=== PATIENT | female | born 1980 | race Two or more races ===

== ENCOUNTER 2018-01-28 20:42 | Emergency (ER) | payer MEDICAID ==
[~2018-01-28] VITALS: Ht 160 cm; Wt 56.7 kg
[2018-01-28] MEDS ORDERED: Albuterol ud Inhalation HHN ONE (21:15)
[2018-01-28] MEDS ORDERED: Ipratropium 0.02% Inh Soln 2.5ml UD HHN ONE (21:15)
[2018-01-28] MEDS ORDERED: IBUPROFEN600 MG ORAL (21:56)
--- NOTE | 2018-01-28 22:20 | Emergency Room Report ---
History of Present Illness General Chief Complaint: Lower Extremity Injury Source: Patient Present Illness HPI 37-year-old female presents ED for evaluation. Patient states she banged her left middle toe against exercise equipment 3 days ago. Notes persistent pain and bruising since. Pain is throbbing, 7 out of 10, nonradiating. Denies any other injuries. Patient is also complaining of a cough and sore throat times one week. Short of breath when talking. States this is happened her in the past and her primary care doctor gave her a "breathing mask". Denies history of asthma but has used inhaler in the past. Denies any fevers or chills. Denies sick contacts or recent travel. No other aggravating relieving factors. Denies any other associated symptoms Allergies: Coded Allergies: No Known Allergies (Unverified , 01/28/18) Patient History Past Medical History: none Past Surgical History: none Pertinent Family History: none Social History: Denies: smoking, alcohol use, drug use Now: No Immunizations: UTD Reviewed Nursing Documentation: PMH: Agreed; PSxH: Agreed Nursing Documentation-PMH Past Medical History: No Stated History Review of Systems All Other Systems: negative except mentioned in HPI Physical Exam Vital Signs Date Time Temp Pulse Resp B/P (MAP) Pulse Ox O2 Delivery O2 Flow Rate FiO2 01/28/18 20:50 98.4 68 16 120/60 97 Room Air 98.4 01/28/18 21:17 21 Sp02 EP Interpretation: reviewed, normal General Appearance: no apparent distress, alert, GCS 15, non-toxic Head: normocephalic, atraumatic Eyes: bilateral eye normal inspection, bilateral eye PERRL ENT: hearing grossly normal, normal pharynx, no angioedema, normal voice Neck: full range of motion, supple/symm/no masses Respiratory: chest non-tender, lungs clear, normal breath sounds, speaking full sentences Cardiovascular #1: regular rate, rhythm, no edema Cardiovascular #2: 2+ carotid (R), 2+ carotid (L), 2+ radial (R), 2+ radial (L) , 2+ dorsalis pedis (R), 2+ dorsalis pedis (L) Gastrointestinal: normal bowel sounds, non tender, soft, non-distended, no guarding, no rebound Rectal: deferred Genitourinary: normal inspection, no CVA tenderness Musculoskeletal: back normal, gait/station normal, normal range of motion, other - bruising L middle toe Neurologic: alert, oriented x3, responsive, motor strength/tone normal, sensory intact, speech normal Psychiatric: judgement/insight normal, memory normal, mood/affect normal, no suicidal/homicidal ideation Reflexes: 3+ bicep (R), 3+ bicep (L), 3+ tricep (R), 3+ tricep (L), 3+ knee (R) , 3+ knee (L) Skin: normal color, no rash, warm/dry, well hydrated Lymphatic: no adenopathy Medical Decision Making Diagnostic Impression: Primary Impression: Upper respiratory infection Qualified Codes: J06.9 - Acute upper respiratory infection, unspecified Additional Impression: Toe contusion Qualified Codes: S90.122A - Contusion of left lesser toe(s) without damage to nail, initial encounter ER Course Hospital Course 37 yo F presents to ED c/o cough/SOB x 1 week. c/o L big toe pain Differential diagnoses include: Fracture, dislocation, sprain, contusion Clinical course Patient placed on stretcher. After initial history and physical, I ordered nebs , cxr, xray of L foot Chest x-ray unremarkable Left foot x-ray shows no evidence of fracture or dislocation no soft tissue swelling. On reassessment patient states her breathing is improved. Given stable vitals with no risk factors I do not believe further workup is required at this time. Recommend close follow-up with PMD Diagnosis - URI, toe contusion Stable and discharged to home with prescription for Motrin. continue inhaler prescribed by PMD. apply ice, keep elevated. weight bear as tolerated. Followup with PMD. Return to ED if symptoms recur or worsen Chest X-Ray Diagnostic Results Chest X-Ray Diagnostic Results : Chest X-Ray Ordered: Yes # of Views/Limited/Complete: 1 View Indication: Shortness of Breath EP Interpretation: Yes Interpretation: no consolidation, no effusion, no pneumothorax, no acute cardiopulmonary disease Impression: No acute disease Electronically Signed by: Electronically signed by Logan Herbert MD Other X-Ray Diagnostic Results Other X-Ray Diagnostic Results : X-Ray ordered: L foot # of Views/Limited Vs Complete: 3 View Indication: Pain EP Interpretation: Yes Interpretation: no dislocation, no soft tissue swelling, no fractures Impression: No acute disease Electronically Signed by: Electronically signed by Logan Herbert MD Last Vital Signs Date Time Temp Pulse Resp B/P (MAP) Pulse Ox O2 Delivery O2 Flow Rate FiO2 01/28/18 21:33 72 18 99 Room Air 21 01/28/18 20:50 98.4 120/60 98.4 Status: improved Disposition: HOME, SELF-CARE Condition: Stable Scripts Ibuprofen* (MOTRIN*) 600 Mg Tablet 600 MG ORAL Q8H PRN for For Pain, #30 TAB 0 Refills Prov: Logan Herbert MD 01/28/18 Patient Instructions: Foot Contusion Logan Herbert MD Jan 28, 2018 22:20
[2018-01-28 22:49] VITALS: BP 97/61
[2018-01-28 22:50] VITALS: BP 97/61
--- NOTE | 2018-01-29 10:44 | Diagnostic Imaging Report ---
Indications: Left foot pain Technique: 3 views of the left foot Comparison: None Findings: No acute fractures. No dislocations. Joint spaces are preserved. No radiopaque foreign body. Normal mineralization. Impression: No acute process This agrees with the preliminary interpretation provided by the emergency room physician .
--- NOTE | 2018-01-29 10:45 | Diagnostic Imaging Report ---
Indication: Reason For Exam: SOB Technique: One view of the chest Comparison: none Findings: Lungs and pleural spaces are clear. Heart size is normal Impression: No acute process This agrees with the preliminary interpretation provided by the emergency room physician
== END 2018-01-28 22:50 | disposition home or self-care (01) ==
LOC: EMR 21:05
DX: J06.9 Acute upper respiratory infection, unspecified (principal); S90.122A Contusion of left lesser toe(s) without damage to nail, initial encounter; W22.8XXA Striking against or struck by other objects, initial encounter; Y92.9 Unspecified place or not applicable
CPT/HCPCS: 71045; 73630; 94640; 99284; J7512

== ENCOUNTER 2019-10-28 20:54 | Emergency (ER) | payer SELFPAY ==
[~2019-10-28] VITALS: Ht 154.9 cm; Wt 56.7 kg
[~2019-10-28 20:54] MED LIST: IBUPROFEN600 MG ORAL
--- NOTE | 2019-10-28 21:13 | NUR ---
ED Nurse Note: pt ambulated to ed with c/o couhgh and congestion x4 weeks pt states she used nebulizer and it didnt help. NAD noted.
[2019-10-28 21:14] VITALS: BP 105/66
--- NOTE | 2019-10-28 21:43 | NUR ---
ED Nurse Note: xray at bedside
[2019-10-28] MEDS ORDERED: ALBUTEROL SULF8.5 GM INH (21:49)
[2019-10-28] MEDS ORDERED: ZITHROMAX250 MG ORAL (21:49)
[2019-10-28] MEDS ORDERED: PREDNISONE20 MG ORAL (21:49)
--- NOTE | 2019-10-28 21:49 | Emergency Room Report ---
History of Present Illness General Chief Complaint: Upper Respiratory Illness Source: Patient Present Illness HPI Is a 39-year-old female with no past medical history. She presents with complaint of a cough. This been ongoing for 4 weeks. Intermittently. Cough is nonproductive nature. Worse when she is laying flat. No fever chills but no nausea no vomiting. No history of asthma. Because of the duration family was concerned and brought her in. Denies any other complaints. No chest pain. No shortness of breath. No exertional component. Allergies: Coded Allergies: No Known Allergies (Unverified , 01/28/18) Patient History Past Medical History: none, see triage record, old chart reviewed Past Surgical History: none Pertinent Family History: none Social History: Denies: smoking Last Menstrual Period: 10/23/19 Now: No Immunizations: other Reviewed Nursing Documentation: PMH: Agreed; PSxH: Agreed Nursing Documentation-PM Past Medical History: No Stated History Review of Systems Eye: Denies: eye pain, blurred vision ENT: Denies: ear pain, nose congestion, throat swelling Respiratory: Reports: cough; Denies: shortness of breath Cardiovascular: Denies: chest pain, palpitations Gastrointestinal: Denies: abdominal pain, diarrhea, nausea, vomiting Musculoskeletal: Denies: back pain, joint pain Skin: Denies: rash Neurological: Denies: headache, numbness Endocrine: Denies: increased thirst, increased urine Hematologic/Lymphatic: Denies: easy bruising All Other Systems: negative except mentioned in HPI Physical Exam Vital Signs Date Time Temp Pulse Resp B/P (MAP) Pulse Ox O2 Delivery O2 Flow Rate FiO2 10/28/19 21:07 97.9 86 14 105/66 (79) 98 Room Air Vitals normal Sp02 EP Interpretation: reviewed, normal General Appearance: well appearing, no apparent distress, alert Head: normocephalic, atraumatic Eyes: bilateral eye PERRL, bilateral eye EOMI ENT: hearing grossly normal, normal pharynx Neck: full range of motion, supple, no meningismus Respiratory: chest non-tender, lungs clear, normal breath sounds Cardiovascular #1: regular rate, rhythm, no murmur Gastrointestinal: normal bowel sounds, non tender, no mass, no organomegaly, no bruit, non-distended Musculoskeletal: back normal, normal range of motion, gait/station normal Psychiatric: mood/affect normal Medical Decision Making Diagnostic Impression: Primary Impression: Cough ER Course Patient with a chronic cough. This may be allergic in component, asthma, viral bronchospasms and review. No evidence of ACS, PE, dissection to name a few. Will discharge home. Chest X-Ray Diagnostic Results Chest X-Ray Diagnostic Results : Chest X-Ray Ordered: Yes # of Views/Limited/Complete: 1 View Indication: Shortness of Breath EP Interpretation: Yes Interpretation: no consolidation, no effusion, no pneumothorax, no acute cardiopulmonary disease Impression: No acute disease Electronically Signed by: Ray Tinsley MD Last Vital Signs Date Time Temp Pulse Resp B/P (MAP) Pulse Ox O2 Delivery O2 Flow Rate FiO2 10/28/19 21:14 97.9 86 14 105/66 98 Room Air Status: improved Disposition: HOME, SELF-CARE Condition: Stable Scripts Azithromycin* (ZITHROMAX*) 250 Mg Tablet 250 MG ORAL DAILY, #6 TAB 0 Refills Take two tables once daily for 1 day, then one tablet once daily for 4 days. Prov: Ray Tinsley MD 10/28/19 Prednisone* (PREDNISONE*) 20 Mg Tablet 40 MG ORAL DAILY, #5 TAB Prov: Ray Tinsley MD 10/28/19 Albuterol Sulfate* (ALBUTEROL SULFATE MDI*) 8.5 Gm Hfa.aer.ad 2 PUFF INH Q4H PRN for cough/wheezing, #1 EA 0 Refills Prov: Ray Tinsley MD 10/28/19 Additional Instructions: Follow-up with your doctor in 7 days. Return if symptoms worsen. Ray Tinsley MD Oct 28, 2019 21:49
[2019-10-28 21:50] VITALS: BP 111/66
--- NOTE | 2019-10-28 21:50 | NUR ---
ER DISCHARGE NOTE: Patient is cleared to be discharged per ERMD, pt is aox4, on room air, with stable vital signs. pt was given dc and prescription instructions, pt was able to verbalize understanding, pt id band removed. pt is able to ambulate with steady gait. pt took all belongings.
--- NOTE | 2019-10-29 11:29 | Diagnostic Imaging Report ---
Indication: Cough Technique: One view of the chest Comparison: For 28/11/2017 Findings: Lungs and pleural spaces are clear. Heart size is normal. No significant interim change Impression: No acute process
== END 2019-10-28 22:15 | disposition home or self-care (01) ==
LOC: EMR 22:10
DX: R05 Cough (principal)
CPT/HCPCS: 71045; 99283